=== PATIENT | male | born 2000 | race Caucasian/White ===

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

== ENCOUNTER 2018-03-18 15:05 | Emergency (ER) | payer MEDICAID ==
[~2018-03-18] VITALS: Ht 182.9 cm; Wt 93.2 kg
[2018-03-18 15:19] VITALS: Ht 182.9 cm; Wt 93.2 kg
[2018-03-18] MEDS ORDERED: NAPROSYN500 MG PO (16:58)
[2018-03-18 17:46] VITALS: BP 130/85
== END 2018-03-18 17:47 | disposition home or self-care (01) ==
LOC: D.ER 15:05
DX: S83.91XA Sprain of unspecified site of right knee, initial encounter (principal); W18.30XA Fall on same level, unspecified, initial encounter; Y93.89 Activity, other specified; Y92.89 Other specified places as the place of occurrence of the external cause